=== PATIENT | female | born 1945 | race Caucasian/White ===

== ENCOUNTER → 2016-03-27 17:06 | Outpatient (CLI) | payer OTHER | END | disposition home or self-care (01) | LOC: D.MAMMO 16:00 | DX: Z12.31 Encounter for screening mammogram for malignant neoplasm of breast (principal) ==

== ENCOUNTER 2017-02-04 16:23 | Emergency (ER) | payer OTHER ==
[2017-02-04 17:42] LABS: APPEARANCE HAZY (CLEAR); BACTERIA FEW /hpf (NONE SEEN); BILIRUBIN NEGATIVE (NEGATIVE); COLOR YELLOW (YELLOW); EPITHELIAL CELLS 0-5 /hpf (0-5); GLUCOSE NEGATIVE (NEGATIVE); KETONE NEGATIVE (NEGATIVE); MUCUS <1+ /lpf (NONE SEEN); NITRITE NEGATIVE (NEGATIVE); PROTEIN NEGATIVE (NEGATIVE); RED CELLS - URINE 0-5 /hpf (0-5); SPECIFIC GRAVITY 1.005 (1.005-1.020); UROBILINOGEN NORMAL (NORMAL)
[2017-02-04 18:20] LABS: ALBUMIN 3.7 g/dL (3.4-5.0); ANION GAP 11.9 mmol/L (8-16); BILIRUBIN - TOTAL 0.35 mg/dL (0.2-1.3); CALCIUM 9.3 mg/dL (8.5-10.1); CARBON DIOXIDE 27.2 mmol/L (21.0-32.0); CREATININE - SERUM 0.9 mg/dL (0.6-1.3); POTASSIUM - SERUM 4.1 mmol/L (3.5-5.1); PROTEIN - SERUM 7.4 g/dL (6.4-8.2)
[2017-02-04 18:46] LABS: BASOPHILS 0.3 % (0-2); EOSINOPHILS 1.7 % (0-7); HEMATOCRIT 39.4 % (36.0-48.0); HEMOGLOBIN 12.9 g/dL (12-16); IMMATURE GRANULOCYTES 0.2 % (0-5); MCH 29.2 pg (26.0-34.0); MCHC 32.7 g/dL (31.0-37.0); MCV 89.1 fL (80.0-100.0); MEAN PLATELET VOLUME 11.7 fL (7.4-10.4); MONOCYTES 5.6 % (2-11); NEUTROPHILS 76.2 % (40-80); RBC 4.42 10x6/uL (4.00-5.40); RDW 13.1 % (11.5-14.5); WBC 8.7 10x3/uL (4.8-10.8)
[2017-02-04 18:50] LABS: PLATELET COUNT 233 10x3/uL (130-400)
== END 2017-02-04 20:07 | disposition home or self-care (01) ==
LOC: D.ER 16:23
PROVIDERS: Physician Assistant Medical
DX: K57.92 Diverticulitis of intestine, part unspecified, without perforation or abscess without bleeding (principal); N39.0 Urinary tract infection, site not specified

== ENCOUNTER 2017-11-12 13:22 | Emergency (ER) | payer OTHER ==
[2017-11-12 14:41] LABS: BASOPHILS 0.3 % (0-2); HEMATOCRIT 36.7 % (36.0-48.0); HEMOGLOBIN 12.2 g/dL (12-16); IMMATURE GRANULOCYTES 0.1 % (0-5); LYMPHOCYTES 11.8 % (15-50); MCHC 33.2 g/dL (31.0-37.0); MCV 87.2 fL (80.0-100.0); MEAN PLATELET VOLUME 11.3 fL (7.4-10.4); MONOCYTES 5.3 % (2-11); NEUTROPHILS 81.5 % (40-80); RBC 4.21 10x6/uL (4.00-5.40); RDW 13.7 % (11.5-14.5); WBC 6.8 10x3/uL (4.8-10.8)
[2017-11-12 14:46] LABS: PLATELET COUNT 170 10x3/uL (130-400)
[2017-11-12 14:57] LABS: ALBUMIN 3.5 g/dL (3.4-5.0); ALKALINE PHOSPHATASE 86 U/L (46-116); ALT (SGPT) 17 U/L (10-68); BILIRUBIN - TOTAL 0.67 mg/dL (0.2-1.3); CALC OSMOLALITY 277 mosm/kg (275-300); CARBON DIOXIDE 26.4 mmol/L (21.0-32.0); CHLORIDE - SERUM 106 mmol/L (98-107); CREATININE - SERUM 0.7 mg/dL (0.6-1.3); GLUCOSE 102 mg/dL (74-106); POTASSIUM - SERUM 3.9 mmol/L (3.5-5.1); PROTEIN - SERUM 6.7 g/dL (6.4-8.2); SODIUM 140 mmol/L (136-145); UREA NITROGEN 11 mg/dL (7-18); eGFR NON AFRICAN AMERICAN 87 mL/min (90-120)
[2017-11-12 15:12] LABS: CREATINE KINASE 57 UL (21-215); PRO BNP 247 pg/mL (0-125); THYROID STIMULATING HORMONE 1.12 uIU/mL (0.36-3.74); TROPONIN-I < 0.017 ng/mL (0.000-0.060)
[2017-11-12 17:32] VITALS: BP 142/70
== END 2017-11-12 17:32 | disposition home or self-care (01) ==
LOC: D.ER 13:22
PROVIDERS: Family Medicine
DX: R07.9 Chest pain, unspecified (principal); K21.9 Gastro-esophageal reflux disease without esophagitis

== ENCOUNTER 2018-06-27 09:00 | Outpatient (CLI) | payer OTHER | END 2018-06-27 10:00 | disposition home or self-care (01) | LOC: D.MAMMO 09:00 | PROVIDERS: ATTEND Family Medicine | DX: Z12.31 Encounter for screening mammogram for malignant neoplasm of breast (principal) ==

== ENCOUNTER 2019-10-11 12:54 | Inpatient (IN) | payer MEDICARE ==
[~2019-10-11] VITALS: Ht 152.4 cm; Wt 60.4 kg
--- NOTE | ~2019-10-11 | HEMODYNAMI ---
PATIENT:LINDA PRESTON MEDICAL RECORD: [id number] : 41 LOCATION:[facility] D.2122 ADMISSION DATE: 10/11/19 Generatedon:10/12/201912:52 Patient name: LINDA PRESTON Patient #: [id number] SSN: [id number] : 1945 Date of study: 10/12/2019 Page: Of Hemodynamic Procedure Report Patient Data Patient Demographics Procedure consent was obtained First Name: LINDA Gender: Female Last Name: MOHAN : 1945 Middle Initial: PRASAD Age: 74 year(s) Patient #: [id number] Race: SSN: [id number] Additional ID: [id number] Contact details Address: [address] [place] [address] ROAD State: [place] City: [place] Zip code: [address] Admission Admission Data Admission Date: 10/11/2019 Admission Time: 15:42 Arrival Date: 10/11/2019 Arrival Time: 15:42 Admit Source: Other Insurance Payor: Medicare Room #: D.2122 [facility] #: [id number] Height (in.): 59.84 BSA: 1.49 (m2) Height (cm.): 152 BMI: 23.37 (kg/m2) Weight (lbs.): 119.05 Weight (kg.): 54 Lab Results Lab Result Date: 10/12/2019 Lab Result Time: 0:00 Biochemistry Name Units Result Min Max BUN mg/dl 13 --(--*-)-- 7 18 Creatinine mg/dl 0.7 --(*---)-- 0.6 1.3 eGFR ml/min 85.87880 -*(----)-- 90 120 NONAFRICAN CBC Name Units Result Min Max Hemoglobin g/dl 13.5 --(*---)-- 13.5 17.5 Procedure Procedure Types Cath Procedure Diagnostic Procedure LHC LHC w/Coronaries Sedation Charges Moderate Sedation up to 15 minutes Procedure Description Procedure Date Procedure Date: 10/12/2019 Procedure Start Time: 12:37 Procedure End Time: 12:48 Procedure Staff Name Function Armando Payne MD Performing Physician Cherri Chaves RT Monitor Bhavya Carranza RT Scrub Hunter Hdez RN Nurse Procedure Data Cath Procedure Fluoroscopy Diagnostic fluoroscopy Total fluoroscopy Time: 1.2 time: 1.2 min min Diagnostic fluoroscopy Total fluoroscopy dose: 246 dose: 246 mGy mGy Contrast Material Contrast Material Type Amount (ml) Isovue 300 50 Entry Location Entry Primary Successful Side Size Upsize Upsize Entry Closure Succes sful Closure Location (Fr) 1 (Fr) 2 (Fr) Remarks Device Remarks Femoral Right 5 Fr Exoseal artery Estimated blood loss: 5 ml Diagnostic catheters Device Type Used For End Catheter Placement MULTIPACK JL 4.0 5Fr Left Coronary catheter Angiography MULTIPACK 3DRC 5Fr Right Coronary catheter Angiography MULTIPACK Pigtail 5 Fr LV Angiography catheter Procedure Complications No complications Procedure Medications Medication Administration Route Dosage Oxygen etCO2 Nasal cannula 2 l/min Heparin Flush Bag added to field 2 bags (1000units/500ml NS) 0.9% NaCl I.V. 100 ml/hr Lidocaine 2% added to field 20 Fentanyl I.V. 50 mcg Versed I.V. 1 mg Hemodynamics Rest BSA: 1.49 (m2) HGB: 13.5 (g/dl) O2 Consumption: Estimated: 143.38 (ml/min) O2 Co nsumption indexed: Estimated:96.23 (ml/min/m) Heart Rate: 84 (bpm) Pressure Samples Time Site Value (mmHg) Purpose Heart Use Rate(bpm) 12:44 LV 95/-1,2 Snapshot 70 Gradients Valve Time Site Site Mean SEP/DFP Peak To Heart Use 1 2 (mmHg) (sec/min) Peak Rate (mmHg) (bpm) Aortic 12:44 LV AO 70 Snapshots Pre Cath Intra NCS Post Cath Vital Signs Time Heart Resp SPO2 etCO2 NIBP (mmHg) Rhythm Pain Sedation Rate (ipm) (%) (mmHg) Status Level (bpm) 12:27:57 69 18 96 0 141/82(126) NSR 0 (11) 10(A) , No pain 12:32:19 65 16 99 12.7 110/58(80) NSR 0 (11) 10(A) , No pain 12:36:29 63 16 99 35 97/55(69) NSR 0 (11) 9(A) , No pain 12:40:35 63 16 98 35.8 90/53(68) NSR 0 (11) 9(A) , No pain 12:44:36 69 18 98 37.3 104/62(75) NSR 0 (11) 9(A) , No pain 12:52:15 61 18 98 36.6 98/54(72) NSR 0 (11) 9(A) , No pain Medications Time Medication Route Dose Verified Delivered Reason Notes Effe ctiveness by by 12:28:57 Oxygen etCO2 2 Armando Hunter Per Nasal l/min St Konrad Hdez RN physician cannula 12:29:06 Heparin Flush added 2 Armando Hunter used for Bag to bags St Konrad Hdez RN procedure (1000units/500ml field GONZALEZ NS) 12:29:20 0.9% NaCl I.V. 100 Armandobeth Montes De Ocay Per ml/hr St Konrad Hdez RN physician 12:29:29 Lidocaine 2% added 20ml Armando Harrison used for to vial St Konrad Hdez RN procedure field 12:30:23 Fentanyl I.V. 50 Armando Hunter for mcg St Konrad Hdez RN sedation 12:30:59 Versed I.V. 1 [address] for [address] Konrad Hdez RN sedation Procedure Log Time Note 12:08:24 Informed consent obtained and on chart 12:10:06 Arrival Date: 10/11/2019 3:42:00 PM 12:10:23 Admit Source: Other 12:10:30 Insurance Payor : Medicare 12:10:40 Patient Height : 59.84 inches 12:10:43 Patient Weight : 119.05 lbs 12:11:34 Lab Result : Hemoglobin 13.5 g/dl 12:11:34 Lab Result : eGFR NONAFRICAN 85.24651 ml/min 12:11:34 Lab Result : BUN 13 mg/dl 12:11:34 Lab Result : Creatinine 0.7 mg/dl 12:11:43 Diagnostic Cath Status : Urgent 12:12:04 Procedure Status Urgent Heart Cath (IP). 12:12:07 Bhavya KNAPP(R) (CV) sent for patient. Start room use. 12:12:08 Time tracking: Regular hours (M-F 7:00 - 5:00) 12:12:14 Plan of Care:Hemodynamics will remain stable., Cardiac rhythm will remain stable., Comfort level will be maintained., Respiratory function will remain adequate., Patient/ family verbilizes understanding of procedure., Procedure tolerated without complication., Recovers from procedure without complications.. 12:26:47 Vital chart was started 12:27:39 Patient received from Med II to CCL 2 Alert and oriented. Tansferred to table in Supine position. 12:27:40 Warm blankets applied, and gregory hugger turned on for patient comfort. 12:27:40 Correct patient and procedure confirmed by team. 12:27:41 ECG and BP/O2 sat monitors applied to patient. 12:27:42 Baseline sample Acquired. 12:27:50 Rhythm: sinus tachycardia 12:27:52 Full Disclosure recording started 12:27:59 H&P Date Dictated: 10/12/2019 New H&P dictated by physician.. 12:28:00 Pre-procedure instructions explained to patient. 12:28:00 Pre-op teaching completed and patient verbalized understanding. 12:28:07 Family in patients room. 12:28:09 Patient NPO since Midnight. 12:28:11 Is the patient allergic to Iodine/contrast media? No. 12:28:11 Was the patient premedicated? Yes 12:28:12 Is patient on blood thinner?No 12:28:14 Patient diabetic? No. 12:28:16 Previous problem with sedation/anesthesia? No ? 12:28:18 Snore? No 12:28:19 Sleep apnea? No 12:28:20 Deviated septum? No 12:28:20 Opens mouth fully? Yes 12:28:22 Sticks out tongue? Yes 12:28:25 Airway obstruction? No ? 12:28:32 Dentures? Yes upper; in tight 12:28:36 Pre procedure: right dorsailis pedis pulse 1+ Palpable, but thready & weak; easily obliterated 12:28:43 Pre procedure: left dorsailis pedis pulse 1+ Palpable, but thready & weak; easily obliterated 12:28:45 Patient pain scale 0/10 ?. 12:28:51 IV patent on arrival in right wrist with 0.9% NaCl at O. 12:28:53 Lab results completed and on chart. 12:28:57 Oxygen 2 l/min etCO2 Nasal cannula was administered by Hunter Hdez RN; Per physician; Verbal order read back and verified. :: Right groin area was prepped with chlora-prep and draped in sterile fashion 12:: Alarms reviewed by R. N. :: Sharps counted by scrub and verified by R.N. :: Physician arrived :: --------ALL STOP TIME OUT------ :: Final Timeout: patient, procedure, and site verified with staff and physician. All members of the team are in agreement. 12:: Right groin site verified by team. 12:: Heparin Flush Bag (1000units/500ml NS) 2 bags added to field was administered by Hunter Hdez RN; used for procedure; Verbal order read back and verified. 12:: Fire Safety Assessment: A--An alcohol-based skin anteseptic being used preoperatively., C--Open oxygen or nitrous oxide is being used., D--An ESU, laser, or fiber-optic light is being used. 12:29:12 Physical assessment completed. ASA score P 2 - A patient with mild systemic disease as per Armando Payne MD. 12:29:20 0.9% NaCl 100 ml/hr I.V. was administered by Hunter Hdez RN; Per physician; Verbal order read back and verified. 12:29:25 2) 60-89 Mildly reduced kidney function, and other findings (as for stage 1) point to kidney disease. 12::29 Lidocaine 2% 20ml vial added to field was administered by Hunter Hdez RN; used for procedure; Verbal order read back and verified. 12:30:23 Fentanyl 50 mcg I.V. was administered by Hunter Hdez RN; for sedation; Verbal order read back and verified. 12::59 Versed 1 mg I.V. was administered by Hunter Hdez RN; for sedation; Verbal order read back and verified. 12:31:32 Use device set Femoral Dx 12:31:33 ACIST Syringe (15795) opened to sterile field. 12:31:33 Bag Decanter (2002S) opened to sterile field. 12:31:33 Medline Cath Pack ([id number]) opened to sterile field. 12:31:34 ACIST Hand Control (82788) opened to sterile field. 12:31:35 ACIST Manifold (32760) opened to sterile field. 12:31:35 DIAGNOSTIC Multipack 5Fr catheter set (WT1884) opened to sterile field. 12:31:36 Tegaderm 4 x 4 (1626W) opened to sterile field. 12:31:38 SHEATH 5FR Superior (FLB280) opened to sterile field. 12:31:38 EMERALD Guide Wire (580-831) opened to sterile field. 12:37:12 Procedure started. 12:37:16 Local anesthetic to right femoral artery with Lidocaine 2% by Armando Payne MD.INITIAL ACCESS ONLY 12:37:23 A 5 Fr sheath was inserted into the Right Femoral artery 12:39:31 A MULTIPACK JL 4.0 5Fr catheter was advanced over the wire and used for Left Coronary Angiography. 12:39:56 LCA angiography performed. 12:39:59 Injector settings: Ml/sec: 3, Volume: 6, 12:41:29 Catheter removed. 12:42:15 A MULTIPACK 3DRC 5Fr catheter was advanced over the wire and used for Right Coronary Angiography. 12:42:26 Catheter removed. 12:42:35 A MULTIPACK Pigtail 5 Fr catheter was advanced over the wire and used for LV Angiography. 12:44:12 LV hemodynamics recorded. 12:44:47 EF : 45 % 12:44:52 Catheter removed. 12:44:55 EXOSEAL 5Fr (EX500) opened to sterile field. 12:45:11 Sheath removed intact; hemostasis achieved with Exoseal to the Right Femoral artery. 12:45:13 Procedure ended.(Physican Out) 12:46:04 Fluoroscopy time 01.20 minutes. 12:46:47 Fluoroscopy dose: 246 mGy 12:46:47 Flurop Dose total: 246 12:46:54 Dose Area Product 53909 mGy/cm. 12:46:57 Contrast amount:Isovue 300 50ml. 12:46:59 Maximum allowable dose exceeded? No. 12:47:01 Sharps counted by scrub and verified by R.N. 12:47:02 Insertion/operative site no bleeding no hematoma. 12:47:04 Post-op/insertion site Right Femoral artery dressed using a 4 x 4 and Tegaderm. 12:47:06 Post Procedure Pulses reassessed and unchanged 12:47:08 Post procedure rhythm: unchanged. 12:47:11 Estimated blood loss: 5 ml 12:47:12 Post procedure instruction explained to patient.Patient verbalizes understanding. 12:47:12 Patient needs reinforcement of post procedure teaching. 12:47:40 Procedure type changed to Cath procedure, Diagnostic procedure, LHC, [facility] w/Coronaries, Sedation Charges, Moderate Sedation up to 15 minutes 12:47:41 Procedure and supply charges have been captured, reviewed, submitted and are correct. 12:47:49 Procedure Complication : No complications 12:47:51 Vital chart was stopped 12:47:55 [facility] Findings: MVD- CABG consult 12:47:57 Operative report dictated upon procedure completion. 12:47:57 See physician's report for complete and final results. 12:47:59 Report given to Med II. 12:48:02 Patient transfered to Med II with Stretcher. 12:48:04 Procedure ended. 12:48:04 Full Disclosure recording stopped 12:48:10 End room use (Document Last) Device Usage Item Name Manufacture Quantity Catalog Hospital Part Current Minimal L ot# / Number Charge Number Stock Stock Serial# Code ACIST Acist 1 03222 668620 054955 011697 20 Syringe Medical (30428) Systems Inc Bag Microtek 1 226999 84811 396968 5 Decanter Medical Inc. () Medline Medline 1 [id number] 613261 98115 239575 5 Cath Pack ([id number]) ACIST Hand Acist 1 62815 818929 015094 572737 5 Control Medical (37746) Systems Inc ACIST Acist 1 34102 565105 194772 880157 5 Manifold Medical (77755) Systems Inc DIAGNOSTIC Cardinal 1 [id number] 100988 04879 955622 30 Multipack Adteractive 5Fr catheter set (OO1297) Tegaderm 4 3M 1 1626W 440276 369360 717147 5 x 4 (1626W) SHEATH 5FR Terumo 1 NCW491 081281 784794 827933 5 Superior (VQI250) EMERALD Cardinal 1 502-455 031055 863938 332867 5 Guide Wire Adteractive (502-455) MULTIPACK Cardinal 1 859351 5 JL 4.0 5Fr Health catheter MULTIPACK Cardinal 1 810431 5 3DRC 5Fr Health catheter MULTIPACK Cardinal 1 359551 5 Pigtail 5 Health Fr catheter EXOSEAL 5Fr Cardinal 1 EX500 388998 496261 812327 10 (EX500) Health Signature Audit [place] Stage Time Signature Unsigned Intra-Procedure 10/12/2019 Cherri Chaves 12:49:45 PM RT(R) Intra-Procedure 10/12/2019 Hunter Hdez 12:50:22 PM RN Intra-Procedure 10/12/2019 Armando Acevedo 12:52:41 PM Konrad GONZALEZ Signatures Performing Physician : Signature : Armando Payne MD Date : Time : Monitor : Cherri Chaves RT Signature : Date : Time : Nurse : Hunter Hdez RN Signature : Date : Time : [place] [address] [place] [address]
[2019-10-11 13:30] LABS: BASOPHILS 0.3 % (0-2); EOSINOPHILS 0.4 % (0-7); HEMATOCRIT 40.5 % (36.0-48.0); HEMOGLOBIN 13.5 g/dL (12-16); IMMATURE GRANULOCYTES 0.1 % (0-5); LYMPHOCYTES 21.4 % (15-50); MCH 29.2 pg (26.0-34.0); MCHC 33.3 g/dL (31.0-37.0); MCV 87.7 fL (80.0-100.0); MEAN PLATELET VOLUME 11.3 fL (7.4-10.4); MONOCYTES 6.8 % (2-11); PLATELET COUNT 191 10x3/uL (130-400); RBC 4.62 10x6/uL (4.00-5.40); RDW 13.2 % (11.5-14.5); WBC 6.8 10x3/uL (4.8-10.8)
[2019-10-11 13:33] LABS: CALC OSMOLALITY 276 mosm/kg (275-300); CALCIUM 9.4 mg/dL (8.5-10.1); CARBON DIOXIDE 25.6 mmol/L (21.0-32.0); CHLORIDE - SERUM 106 mmol/L (98-107); CREATININE - SERUM 0.7 mg/dL (0.6-1.3); GLUCOSE 103 mg/dL (74-106); SODIUM 139 mmol/L (136-145); UREA NITROGEN 9 mg/dL (7-18); eGFR NON AFRICAN AMERICAN 86 mL/min (90-120)
[2019-10-11 13:35] LABS: APTT 29.3 SECONDS (22.8-39.4); INR 0.97 (0.85-1.17); PROTIME 12.8 SECONDS (11.6-15.0)
[2019-10-11 13:39] VITALS: BP 142/82
[2019-10-11 13:55] LABS: ALBUMIN 3.8 g/dL (3.4-5.0); ALKALINE PHOSPHATASE 108 U/L (30-120); ALT (SGPT) 22 U/L (10-68); CKMB 29.4 U/L (0.0-3.6); CREATINE KINASE 263 UL (21-215); MAGNESIUM - SERUM 2.1 mg/dL (1.8-2.4); PROTEIN - SERUM 7.5 g/dL (6.4-8.2)
[2019-10-11 13:57] LABS: TROPONIN-I 3.921 ng/mL (0.000-0.060)
--- NOTE | 2019-10-11 17:51 | NUR ---
PT ARRIVED TO FLOOR. AT BEDSIDE. TELEMETRY APPLIED. INFORMED OF NPO STATUS FOR NOW.
[2019-10-11 17:55] VITALS: BP 132/79
[2019-10-11 20:00] VITALS: BP 113/59
[2019-10-11 20:19] LABS: CKMB 23.1 U/L (0.0-3.6); CREATINE KINASE 212 UL (21-215)
[2019-10-11 20:20] LABS: TROPONIN-I 4.513 ng/mL (0.000-0.060)
[2019-10-12] VITALS (7 sets, daily range): BP systolic 107–132; BP diastolic 59–78; Ht 152.4 cm; Wt 60.4 kg
[2019-10-12 01:17] LABS: CKMB 13.7 U/L (0.0-3.6); CREATINE KINASE 164 UL (21-215); TROPONIN-I 4.077 ng/mL (0.000-0.060)
--- NOTE | 2019-10-12 12:16 | NUR ---
PT TO CREDIT PORTFOLIO ADVISOR.
[2019-10-12 14:43] LABS: HEMATOCRIT 37.9 % (36.0-48.0); HEMOGLOBIN 12.3 g/dL (12-16); MCH 28.8 pg (26.0-34.0); MCHC 32.5 g/dL (31.0-37.0); MCV 88.8 fL (80.0-100.0); MEAN PLATELET VOLUME 11.5 fL (7.4-10.4); RBC 4.27 10x6/uL (4.00-5.40); RDW 13.4 % (11.5-14.5); WBC 6.1 10x3/uL (4.8-10.8)
[2019-10-12 15:38] LABS: INR 1.08 (0.85-1.17); PROTIME 13.9 SECONDS (11.6-15.0)
[2019-10-12 15:46] LABS: APTT 37.2 SECONDS (22.8-39.4)
[2019-10-12 16:56] LABS: PLT FUNCT.(P2Y12) PLAVIX 102 PRU (194-418)
--- NOTE | 2019-10-12 19:30 | NUR ---
RECEIVED BEDSIDE REPORT. ROUNDING COMPLETE. PATIENT IS ALERT AND ORIENTED, RESTING COMFORTABLY IN BED. RESPIRATIONS ARE EVEN AND UNLABORED. NO S/S OF DISTRESS. NO C/O PAIN. CALLLIGHT WITHIN REACH. WILL CPOC.
[2019-10-13] VITALS: BP 122/76
[2019-10-13 04:00] VITALS: BP 105/62
[2019-10-13 05:21] LABS: BASOPHILS 0.2 % (0-2); EOSINOPHILS 0.8 % (0-7); HEMATOCRIT 37.2 % (36.0-48.0); HEMOGLOBIN 12.1 g/dL (12-16); LYMPHOCYTES 23.8 % (15-50); MCH 28.7 pg (26.0-34.0); MCHC 32.5 g/dL (31.0-37.0); MCV 88.4 fL (80.0-100.0); MONOCYTES 5.7 % (2-11); NEUTROPHILS 69.5 % (40-80); PLATELET COUNT 171 10x3/uL (130-400); RBC 4.21 10x6/uL (4.00-5.40); RDW 13.5 % (11.5-14.5); WBC 6.1 10x3/uL (4.8-10.8)
[2019-10-13 06:02] LABS: ALBUMIN 3.2 g/dL (3.4-5.0); ALKALINE PHOSPHATASE 90 U/L (30-120); ALT (SGPT) 17 U/L (10-68); BILIRUBIN - TOTAL 0.76 mg/dL (0.2-1.3); CALCIUM 8.9 mg/dL (8.5-10.1); CARBON DIOXIDE 25.6 mmol/L (21.0-32.0); CHLORIDE - SERUM 103 mmol/L (98-107); CREATININE - SERUM 0.7 mg/dL (0.6-1.3); GLUCOSE 116 mg/dL (74-106); POTASSIUM - SERUM 3.8 mmol/L (3.5-5.1); PRO BNP 2837 pg/mL (0-450); PROTEIN - SERUM 6.5 g/dL (6.4-8.2); SODIUM 138 mmol/L (136-145); eGFR NON AFRICAN AMERICAN 86 mL/min (90-120)
[2019-10-13 06:08] LABS: CALC OSMOLALITY 276 mosm/kg (275-300); UREA NITROGEN 12 mg/dL (7-18)
[2019-10-13 08:00] VITALS: BP 127/69
[2019-10-13 12:03] VITALS: BP 105/57
--- NOTE | 2019-10-13 13:47 | NUR ---
HEPARIN INCREASED TO 800ML/HR VIA R.WRIST PER PROTOCOL. NEW PTT ORDERED FOR 1944. WILL CTM.
[2019-10-13 20:00] VITALS: BP 121/72
[2019-10-14 04:00] VITALS: BP 110/70
[2019-10-14 06:59] LABS: BASOPHILS 0.4 % (0-2); EOSINOPHILS 1.3 % (0-7); HEMATOCRIT 38.2 % (36.0-48.0); HEMOGLOBIN 12.6 g/dL (12-16); IMMATURE GRANULOCYTES 0.2 % (0-5); LYMPHOCYTES 24.3 % (15-50); MCH 29.1 pg (26.0-34.0); MCV 88.2 fL (80.0-100.0); MEAN PLATELET VOLUME 11.6 fL (7.4-10.4); MONOCYTES 8.4 % (2-11); NEUTROPHILS 65.4 % (40-80); PLATELET COUNT 176 10x3/uL (130-400); RBC 4.33 10x6/uL (4.00-5.40); RDW 13.4 % (11.5-14.5); WBC 5.5 10x3/uL (4.8-10.8)
[2019-10-14 07:52] LABS: ALBUMIN 3.4 g/dL (3.4-5.0); ANION GAP 13.9 mmol/L (8-16); BILIRUBIN - TOTAL 0.55 mg/dL (0.2-1.3); CALCIUM 8.8 mg/dL (8.5-10.1); CARBON DIOXIDE 25.1 mmol/L (21.0-32.0); CREATININE - SERUM 0.8 mg/dL (0.6-1.3); PROTEIN - SERUM 6.4 g/dL (6.4-8.2)
--- NOTE | 2019-10-14 07:58 | CN ---
PATIENT NAME:LINDA PRESTON MEDICAL RECORD: [id number] : 41 LOCATION:D. D.2122 ADMIT DATE: 10/11/19 ACCOUNT: [id number] CONSULTING PHYSICIAN: ANJUM DORADO MD REFERRING PHYSICIAN: AL PRADO DO DATE OF CONSULTATION: 10/12/2019 HISTORY OF PRESENT ILLNESS: A 74-year-old female with no known history of coronary artery disease, on no chronic medications, quite healthy, still working part-time. About the past week, she has been having intermittent chest tightness and pressure in the chest, waxing and waning course, had a severe episode yesterday, presented to the Emergency Room, had enzymes consistent with NSTEMI. We are asked to see her concerning her cardiovascular status. PAST MEDICAL HISTORY: Unremarkable. ALLERGIES: None known. MEDICATIONS: None chronically. SOCIAL HISTORY: . Nonsmoker and nondrinker, walks at least 5 days a week. Easily takes care of all her ADLs. REVIEW OF SYSTEMS: The patient reports easy bruising but reports no swollen glands. The patient reports no fever, no night sweats, no significant weight gain, no significant weight loss. No significant exercise tolerance. The patient reports no dry eyes, no irritation, no vision change. Patient reports no difficulty hearing and no ear pain. Patient reports no frequent nose bleeds or nose and sinus problems. Patient reports on arm pain on exertion. No shortness of breath while lying down. No history of heart murmur. Patient reports no cough, no wheezing or coughing up blood. Patient reports no abdominal pain, no vomiting. Normal appetite. No diarrhea and not vomiting blood. No nausea and no constipation. Patient reports no incontinence. No difficulty urinating. No hematuria. No increased frequency. Patient reports no muscle aches. No weakness, no arthralgias, no back pain. No swelling of the extremities. Patient reports no abnormal mole, no jaundice, no rashes. Reports no loss of consciousness. No weakness and no numbness. No seizures, dizziness, or headaches. The patient reports no depression, no sleep disturbance, feeling safe in a relationship and no alcohol abuse. Patient reports on fatigue. Reports no runny nose or sinus pressure. No itching, no hives, and no frequent sneezing. PHYSICAL EXAMINATION: GENERAL: Pleasant female, in no acute distress, appears younger than stated age. VITAL SIGNS: Blood pressure 127/78, pulse 72 and regular. HEENT: Normocephalic and atraumatic. NECK: No JVD or bruit. HEART: Regular, II/ systolic ejection murmur. LUNGS: Good air excursion. ABDOMEN: Soft, nontender. EXTREMITIES: Pulses 2+. No edema. DIAGNOSTIC DATA: EKG shows poor R-wave progression. CONSULT REPORT [id number] LINDA PRESTON IMPRESSION: Non-ST segment elevation myocardial infarction at this point in time. PLAN: For angiography, intervention based on above. TRANSINT:[id number] Voice Confirmation ID: [id number] DOCUMENT ID: [id number] ANJUM DORADO MD at 0758 CC: [id number] DICTATION DATE: 10/12/19 1023 CORK INSULATION SETTER: 10/12/19 1251 ADM IN [facility] [address] [place] [address]
--- NOTE | 2019-10-14 07:58 | OP ---
PATIENT NAME: LINDA PRESTON MEDICAL RECORD: [id number] :41 LOCATION:D.M2 D.2122 ADMISSION DATE:10/11/19 SURGEON: ANJUM DORADO MD DATE OF OPERATION: 10/12/2019 PROCEDURE: Left heart catheterization, selective coronary angiography, right femoral artery approach. CATHETERS: A 5-Honduran sheath, 5/4 Ubaldo, 5/4 pig. The procedure was well tolerated. The patient returned to castro, sheath removed. ExoSeal device placed. FINDINGS: Left ventriculography in the 30-degree FELIPE view shows mild anterior apical hypokinesis but overall function only mildly reduced at 45% to 50%. CORONARY ANATOMY: LEFT MAIN: Left main is free of disease. LAD: LAD is basically subtotaled in its mid portion. The distal LAD has JASMEET 3 flow. This is small, but appears to be a reasonable target. CIRCUMFLEX: Circumflex has a large OM with 80% proximal stenosis. Terminal true circumflex has about 80% stenosis. RIGHT CORONARY ARTERY: Right coronary artery again has about 80% stenosis, appears to be a good target distally. IMPRESSION: Mildly decreased LV systolic function, multivessel coronary artery disease. We will ask Dr. Jacob concerning possible coronary bypass grafting. TRANSINT:[id number] Voice Confirmation ID: [id number] DOCUMENT ID: [id number] ANJUM DORADO MD at 0758 CC: [id number] DICTATION DATE: 10/12/19 1258 MAKEUP SALES CONSULTANT: 10/13/19 0024 ADM IN [place] [address] [place] [address]
[2019-10-14 10:36] VITALS: BP 109/56
[2019-10-14 12:00] VITALS: BP 118/68
--- NOTE | 2019-10-14 13:40 | NUR ---
Nutrition Follow-up: Pt reports good appetite/PO intake. Denies N/V/C/D. Noted plans for CABG on Saturday. Diet: Cardiac PO intake: 75-100% Wt: 120# (10/11) Last BM: 10/13 Labs noted: Glu 109 Meds noted: Protonix, electrolyte protocol -Monitor wt; noted daily wts ordered. -RD following.
[2019-10-14 16:00] VITALS: BP 121/64
[2019-10-14 19:54] LABS: BILIRUBIN NEGATIVE (NEGATIVE); KETONE NEGATIVE (NEGATIVE); NITRITE NEGATIVE (NEGATIVE); UROBILINOGEN NORMAL (NORMAL)
[2019-10-14 19:55] LABS: EPITHELIAL CELLS OCC /hpf (0-5); RED CELLS - URINE OCC /hpf (0-5); WHITE CELLS - URINE 0-5 /hpf (0-5)
[2019-10-14 20:00] VITALS: BP 110/59
[2019-10-15] VITALS: BP 115/66
[2019-10-15 04:00] VITALS: BP 102/63
[2019-10-15 06:20] LABS: BASOPHILS 0.6 % (0-2); EOSINOPHILS 2.1 % (0-7); HEMATOCRIT 35.4 % (36.0-48.0); HEMOGLOBIN 11.7 g/dL (12-16); IMMATURE GRANULOCYTES 0.2 % (0-5); LYMPHOCYTES 30.6 % (15-50); MCH 29.3 pg (26.0-34.0); MCHC 33.1 g/dL (31.0-37.0); MCV 88.5 fL (80.0-100.0); MEAN PLATELET VOLUME 11.3 fL (7.4-10.4); MONOCYTES 8.3 % (2-11); NEUTROPHILS 58.2 % (40-80); PLATELET COUNT 156 10x3/uL (130-400); RDW 13.2 % (11.5-14.5); WBC 4.8 10x3/uL (4.8-10.8)
[2019-10-15 06:32] LABS: INR 1.04 (0.85-1.17); PROTIME 13.6 SECONDS (11.6-15.0)
[2019-10-15 06:33] LABS: APTT 85.3 SECONDS (22.8-39.4)
[2019-10-15 07:02] LABS: ALBUMIN 3.1 g/dL (3.4-5.0); ALKALINE PHOSPHATASE 84 U/L (30-120); ALT (SGPT) 21 U/L (10-68); BILIRUBIN - TOTAL 0.59 mg/dL (0.2-1.3); CALC OSMOLALITY 278 mosm/kg (275-300); CARBON DIOXIDE 26.4 mmol/L (21.0-32.0); CHLORIDE - SERUM 103 mmol/L (98-107); CHOLESTEROL, TOTAL 183 mg/dL (0-200); CREATININE - SERUM 0.7 mg/dL (0.6-1.3); GLUCOSE 103 mg/dL (74-106); PHOSPHOROUS 2.9 mg/dL (2.5-4.9); POTASSIUM - SERUM 4.1 mmol/L (3.5-5.1); PRO BNP 1886 pg/mL (0-450); PROTEIN - SERUM 6.5 g/dL (6.4-8.2); SODIUM 139 mmol/L (136-145); UREA NITROGEN 14 mg/dL (7-18); URIC ACID 3.6 mg/dL (2.6-7.2); eGFR NON AFRICAN AMERICAN 86 mL/min (90-120)
[2019-10-15 09:32] VITALS: BP 116/63
--- NOTE | 2019-10-15 10:50 | NUR ---
PT TOOK SHOWER BY SELF.
[2019-10-15 13:55] VITALS: BP 118/61
--- NOTE | 2019-10-15 14:05 | MORECARE ---
CASE MANAGEMENT DISCHARGE SUMMARY PATIENT: LINDA PRESTON UNIT: [id number] ADM DATE: 10/11/19 AGE: 74 : 43 SEX: F ROOM/BED: D.2122 AUTHOR: JENNIFFER MOORE PHYSICIAN: REFERRING PHYSICIAN: AL PRADO DO DATE OF SERVICE: 10/15/19 Discharge Plan Patient Name: LINDA PRESTON [facility] [facility] 1945 Planned Disposition: Home or Self Care Anticipated Discharge Date: Discharge Date: Expected LOS: Initial Reviewer: [email or web address] Initial Review Date: 10/15/2019 Generated: 10/15/19 3:05 pm Patient Name: LINDA PRESTON Page [id number] at 1405 All edits/amendments must be made on the electronic document DICTATION DATE: 10/15/19 1405 CHIP LOFT WORKER: LAVERN 10/15/19 1405 RPT#: [id number] DC DATE: STATUS: ADM IN [facility] [address] [place] [address] END OF REPORT
--- NOTE | 2019-10-15 14:13 | MORECARE ---
CASE MANAGEMENT DISCHARGE SUMMARY PATIENT: LINDA GARCIA UNIT: [id number] ADM DATE: 10/11/19 AGE: 74 : 43 SEX: F ROOM/BED: D.2 AUTHOR: JENNIFFER MOORE PHYSICIAN: REFERRING PHYSICIAN: AL PRADO DO DATE OF SERVICE: 10/15/19 Discharge Plan Patient Name: LINDA GARCIA [facility] [facility] 1945 Planned Disposition: Home or Self Care Anticipated Discharge Date: Discharge Date: Expected LOS: Initial Reviewer: [email or web address] Initial Review Date: 10/15/2019 Generated: 10/15/19 3:12 pm DCPIA - Discharge Planning Initial Assessment Updated by [email or web address]: Deacon Gabriel on 10/15/19 2:09 pm * Is the patient Alert and Oriented? Yes * How many steps to enter\exit or inside your home? * PCP Lyndon Lawton * Pharmacy [facility] in [place] * Preadmission Environment Home with Family * ADLs Independent * Equipment Cane Crutch Elevated Toliet Seat Walker * List name and contact numbers for known caregivers / representatives who currently or will assist patient after discharge: Robin Garcia ([phone]) * Verbal permission to speak to the caregivers and representatives has been obtained from the patient. Yes * Community resources currently utilized None * Additional services required to return to the preadmission environment? No * Can the patient safely return to the preadmission environment? Yes * Has this patient been hospitalized within the prior 30 days at any hospital? No Last DP export: 10/15/19 1:05 pm Patient Name: LINDA GARCIA Page [phone] at 1413 All edits/amendments must be made on the electronic document DICTATION DATE: 10/15/19 141 DOPE EDGER: LAVERN 10/15/19 141 RPT#: [id number] DC DATE: STATUS: ADM IN [facility] [address] [place] [address] END OF REPORT
--- NOTE | 2019-10-15 14:35 | MORECARE ---
CASE MANAGEMENT DISCHARGE SUMMARY PATIENT: LINDA GARCIA UNIT: [id number] ADM DATE: 10/11/19 AGE: 74 : 41 SEX: F ROOM/BED: D.6742 AUTHOR: JENNIFFER MOORE PHYSICIAN: REFERRING PHYSICIAN: AL PRADO DO DATE OF SERVICE: 10/15/19 Discharge Plan Patient Name: LINDA GARCIA Facility: [facility]:[place] : 1945 Planned Disposition: Home or Self Care Anticipated Discharge Date: Discharge Date: Expected LOS: Initial Reviewer: [email or web address] Initial Review Date: 10/15/2019 Generated: 10/15/19 3:35 pm Comments DCP- Discharge Planning Updated by [email or web address]: Deacon Gabriel on 10/15/19 1:[address] Patient Name: LINDA GARCIA Admission Status: ER Accout number: [id number] Admission Date: 10-11-2019 : 1945 Admission Diagnosis:NON-ST ELEVATION (NSTEMI) MYOCARDIAL INFARCTION Attending: AL PRADO Current LOS: 4 Anticipated DC Date: Planned Disposition: Home or Self Care Primary Insurance: AETNA MEDICARE PPO or HMO Discharge Planning Comments: CM met with patient to complete initial dc planning assessment. CM educated patient on the CM role and verbal consent was given by patient to complete assessment. CM verified patient's address, phone number, and emergency contact phone numbers. Patient lives at home with her spouse. At discharge, patient plans to return home and feels this is a safe discharge environment. Patient explained that she has 3 steps total to enter her house and they are at different levels, however, ramps have been installed and she feels that her home is safe to enter. She further stated that she exits her house via the front door and the one step inside her home has handrails that eases navigation from one level to the other. Patient stated that she has daughters that live nearby on the same property and several grandchildren that will come to help with house chores. CM discussed availability of home health, rehab services, and medical equipment. Patient explained that her spouse has left over medical equipment from a previous surgery and she does not anticipate needing any equipment. Patient denied known discharge needs at this time. Transportation provider at discharge will be her spouse, Robni Garcia ([phone]). Patient explained that if outpatient rehabilitation services are needed post discharge, then she would like facilities near [place] to provide her care. CM will continue to follow and will assist as needed with dc plans/needs. Needle Loom Weaver: Deacon Gabriel DCPIA - Discharge Planning Initial Assessment Updated by [email or web address]: Deacon Gabriel on 10/15/19 2:09 pm * Is the patient Alert and Oriented? Yes * How many steps to enter\exit or inside your home? * PCP Lyndon Lawton * Pharmacy [email or web address] in [place] * Preadmission Environment Home with Family * ADLs Independent * Equipment Cane Crutch Elevated [place] Seat Walker * List name and contact numbers for known caregivers / representatives who currently or will assist patient after discharge: Robin Garcia ([phone]) * Verbal permission to speak to the caregivers and representatives has been obtained from the patient. Yes * Community resources currently utilized None * Additional services required to return to the preadmission environment? No * Can the patient safely return to the preadmission environment? Yes * Has this patient been hospitalized within the prior 30 days at any hospital? No Last DP export: 10/15/19 1:13 pm Patient Name: LINDA GARCIA Page 11700 at 1435 All edits/amendments must be made on the electronic document DICTATION DATE: 10/15/19 1435 MONOTYPE SETTER: LAVERN 10/15/19 1435 RPT#: [id number] DC DATE: STATUS: ADM IN [facility] [address] [place] [address] END OF REPORT
--- NOTE | 2019-10-15 18:03 | NUR ---
I have reviewed this patient and I concur with the Shift Assessment completed by the Licensed Practical Nurse today this shift.
[2019-10-15 18:10] VITALS: BP 115/52
[2019-10-16] VITALS (50 sets, daily range): BP systolic 89–145; BP diastolic 50–97
--- NOTE | 2019-10-16 04:00 | NUR ---
HEPARIN DRIP STOPPED. PER NURSING INSTRUCTION.
[2019-10-16 06:33] LABS: BASOPHILS 0.4 % (0-2); EOSINOPHILS 2.4 % (0-7); HEMATOCRIT 36.9 % (36.0-48.0); IMMATURE GRANULOCYTES 0.2 % (0-5); LYMPHOCYTES 27.7 % (15-50); MCHC 32.5 g/dL (31.0-37.0); MCV 89.1 fL (80.0-100.0); MONOCYTES 7.4 % (2-11); NEUTROPHILS 61.9 % (40-80); PLATELET COUNT 166 10x3/uL (130-400); RBC 4.14 10x6/uL (4.00-5.40); RDW 13.4 % (11.5-14.5); WBC 4.6 10x3/uL (4.8-10.8)
[2019-10-16 06:37] LABS: ALBUMIN 3.4 g/dL (3.4-5.0); ANION GAP 13.2 mmol/L (8-16); BILIRUBIN - TOTAL 0.55 mg/dL (0.2-1.3); CALCIUM 9.4 mg/dL (8.5-10.1); CARBON DIOXIDE 25.7 mmol/L (21.0-32.0); CREATININE - SERUM 0.8 mg/dL (0.6-1.3); POTASSIUM - SERUM 3.9 mmol/L (3.5-5.1); PROTEIN - SERUM 6.8 g/dL (6.4-8.2)
[2019-10-16 11:59] LABS: INR 1.6 (0.85-1.17); PROTIME 18.9 SECONDS (11.6-15.0)
--- NOTE | 2019-10-16 12:41 | NUR ---
Nutrition Follow-up: CABG today. Diet: Clear Liquid -> Regular No new wt; last wt: 120# (10/11) Labs reviewed Meds reviewed -Rec ADAT as medically feasible following surgery. -Need new wt; noted daily wts ordered. -RD following.
--- NOTE | 2019-10-16 15:02 | NUR ---
UNABLE TO GIVE PLASMA AWAITING ON BLOOD BAND FROM LAB AT THIS TIME.
[2019-10-16 19:00] LABS: INR 1.12 (0.85-1.17); PROTIME 14.4 SECONDS (11.6-15.0)
--- NOTE | 2019-10-16 19:15 | NUR ---
REPORT REC'D AND CARE ASSUMED, REC'D PT RESTING EYES CLOSED, RESP EVEN AND UNLABORED ON 3.5 LITERS OF O2, PT AWAKENS EASILY, HARD OF HEARING, FOLLOWS COMMANDS, RIJ CVL DRSG CDI WITH PLASMALYTE @ 100CC/HR, NEOSYNEPHRINE @ 0.8CC/HR, ZINACEF @ 12.8CC/HR, MIDSTERNAL DRSG CDI, MEDIASTINAL CT'S Y'ED TOGETHER TO 20CM H2O SUCTION, SANGUINOUS DRAINAGE NOTED, LEFT RADIAL CHAD WITH FLEXION BOARD IN USE, LEVELED AND ZEROED WITH RETURN OF APPROPRIATE WAVEFORMS, ELLIOTT PATENT DRAINING CLEAR YELLOW URINE, TEDS/SCDS BILATERAL COBAN DRSGS CDI, LEFT SUBSTERNAL PATRICIA DRAIN COMPRESSED WITH SANGUINOUS DRAINAGE, PPP, SR UP X 2, CALL LIGHT IN REACH.
--- NOTE | 2019-10-16 20:00 | NUR ---
PT TOLERATING ICE CHIPS, DENIES NAUSEA
--- NOTE | 2019-10-16 20:45 | NUR ---
PT'S CALLED AND UPDATE PROVIDED.
[2019-10-17] VITALS (30 sets, daily range): BP systolic 90–120; BP diastolic 48–69
--- NOTE | 2019-10-17 00:51 | NUR ---
PT AWAKE, COMPLAINS OF PAIN IN HER BACK, PERCOCET 10 GIVEN PO FOR DISCOMFORT, VSS.
[2019-10-17 06:06] LABS: MCH 28.5 pg (26.0-34.0); MCV 89.1 fL (80.0-100.0); MEAN PLATELET VOLUME 10.5 fL (7.4-10.4); RDW 14.4 % (11.5-14.5)
[2019-10-17 06:08] LABS: HEMATOCRIT 26.9 % (36.0-48.0); HEMOGLOBIN 8.6 g/dL (12-16); RBC 3.02 10x6/uL (4.00-5.40); WBC 10.2 10x3/uL (4.8-10.8)
[2019-10-17 06:34] LABS: ALBUMIN 2.7 g/dL (3.4-5.0); ALKALINE PHOSPHATASE 53 U/L (30-120); ALT (SGPT) 24 U/L (10-68); BILIRUBIN - TOTAL 1.08 mg/dL (0.2-1.3); CALCIUM 7.5 mg/dL (8.5-10.1); CARBON DIOXIDE 27.3 mmol/L (21.0-32.0); CHLORIDE - SERUM 105 mmol/L (98-107); CREATININE - SERUM 0.7 mg/dL (0.6-1.3); POTASSIUM - SERUM 4.1 mmol/L (3.5-5.1); PROTEIN - SERUM 5.2 g/dL (6.4-8.2); SODIUM 137 mmol/L (136-145); UREA NITROGEN 9 mg/dL (7-18); eGFR NON AFRICAN AMERICAN 86 mL/min (90-120)
[2019-10-17 06:36] LABS: CALC OSMOLALITY 275 mosm/kg (275-300); GLUCOSE 149 mg/dL (74-106)
[2019-10-17 08:40] LABS: BASOPHILS 0.1 % (0-2); EOSINOPHILS 0 % (0-7); HEMATOCRIT 26.9 % (36.0-48.0); HEMOGLOBIN 8.9 g/dL (12-16); IMMATURE GRANULOCYTES 0.3 % (0-5); LYMPHOCYTES 5.1 % (15-50); MCH 29.1 pg (26.0-34.0); MCHC 33.1 g/dL (31.0-37.0); MCV 87.9 fL (80.0-100.0); MEAN PLATELET VOLUME 10.7 fL (7.4-10.4); MONOCYTES 6.6 % (2-11); NEUTROPHILS 87.9 % (40-80); RBC 3.06 10x6/uL (4.00-5.40); RDW 14.4 % (11.5-14.5)
[2019-10-17 09:02] LABS: PLATELET COUNT 210 10x3/uL (130-400); WBC 13.3 10x3/uL (4.8-10.8)
[2019-10-17 09:27] LABS: ALBUMIN 2.6 g/dL (3.4-5.0); ALKALINE PHOSPHATASE 54 U/L (30-120); ALT (SGPT) 26 U/L (10-68); BILIRUBIN - TOTAL 1.14 mg/dL (0.2-1.3); CALC OSMOLALITY 274 mosm/kg (275-300); CALCIUM 7.7 mg/dL (8.5-10.1); CARBON DIOXIDE 23.5 mmol/L (21.0-32.0); CHLORIDE - SERUM 103 mmol/L (98-107); CREATININE - SERUM 0.6 mg/dL (0.6-1.3); GLUCOSE 169 mg/dL (74-106); POTASSIUM - SERUM 4.1 mmol/L (3.5-5.1); PROTEIN - SERUM 5.4 g/dL (6.4-8.2); SODIUM 136 mmol/L (136-145); UREA NITROGEN 10 mg/dL (7-18); eGFR NON AFRICAN AMERICAN > 90 mL/min (90-120)
--- NOTE | 2019-10-17 11:10 | NUR ---
ORAL CARE DONE WITH PERIDEX
--- NOTE | 2019-10-17 17:35 | NUR ---
PATIENT UP TO BATHROOM VOIDED APPROX 200ML YELLOW URINE BACK TO BED. PATIENT TOLERATED WELL.
[2019-10-17 19:10] LABS: POTASSIUM - SERUM 3.9 mmol/L (3.5-5.1)
--- NOTE | 2019-10-17 23:08 | NUR ---
PT AWAKE COMPLAINS OF INCISIONAL DISCOMFORT, PAIN PILL REQUESTED, PERCOCET 10 PROVIDED BY Betty TANG RN, PT ASSISTED TO POSITION FOR COMFORT, VSS, WILL MONITOR CLOSELY FOR CHANGES.
[2019-10-18] VITALS (23 sets, daily range): BP systolic 89–138; BP diastolic 53–77
--- NOTE | 2019-10-18 05:30 | NUR ---
PT ASSISTED UP TO BATHROOM TO VOID, PT ASSISTED TO RECLINER AND HAIR BRUSHED, DENIES NEEDS, LIGHT OFF PER REQUEST, BS TABLE AND CALL LIGHT REACH.
[2019-10-18 06:32] LABS: HEMATOCRIT 25.1 % (36.0-48.0); HEMOGLOBIN 8.2 g/dL (12-16); MCH 29.1 pg (26.0-34.0); MCHC 32.7 g/dL (31.0-37.0); MEAN PLATELET VOLUME 11.1 fL (7.4-10.4); RBC 2.82 10x6/uL (4.00-5.40); RDW 14.4 % (11.5-14.5); WBC 14.2 10x3/uL (4.8-10.8)
[2019-10-18 07:00] LABS: ALBUMIN 2.5 g/dL (3.4-5.0); ALKALINE PHOSPHATASE 60 U/L (30-120); ALT (SGPT) 21 U/L (10-68); BILIRUBIN - TOTAL 0.76 mg/dL (0.2-1.3); CALC OSMOLALITY 266 mosm/kg (275-300); CALCIUM 8.3 mg/dL (8.5-10.1); CARBON DIOXIDE 26.3 mmol/L (21.0-32.0); CHLORIDE - SERUM 99 mmol/L (98-107); CREATININE - SERUM 0.7 mg/dL (0.6-1.3); GLUCOSE 128 mg/dL (74-106); POTASSIUM - SERUM 4.3 mmol/L (3.5-5.1); PROTEIN - SERUM 5.6 g/dL (6.4-8.2); SODIUM 133 mmol/L (136-145); UREA NITROGEN 10 mg/dL (7-18); eGFR NON AFRICAN AMERICAN 86 mL/min (90-120)
--- NOTE | 2019-10-18 14:48 | NUR ---
IN AND OUT CATH DONE USING EFFICIENCY MINER BLASTING SENT TO LAB.
[2019-10-18 15:32] LABS: BILIRUBIN NEGATIVE (NEGATIVE); KETONE NEGATIVE (NEGATIVE); NITRITE NEGATIVE (NEGATIVE); UROBILINOGEN NORMAL (NORMAL)
--- NOTE | 2019-10-18 19:20 | NUR ---
PT RECEIVED IN BED WITH EYES OPEN. PT UP TO BATHROOM, URINE ONLY NOTED. BACK IN BED AND PLACED ON MONITOR. CALL LIGHT IN REACH. WILL CONTINUE TO OBSERVE.
--- NOTE | 2019-10-18 22:35 | NUR ---
PT ASSISTED TO BATHROOM. URINE ONLY NOTED. BACK IN BED. CALL LIGHT IN REACH.
[2019-10-19] VITALS (26 sets, daily range): BP systolic 93–126; BP diastolic 53–79
--- NOTE | 2019-10-19 02:15 | NUR ---
PT UP TO BATHROOM, URINE ONLY NOTED. BACK IN BED. CALL LIGHT IN REACH.
[2019-10-19 06:20] LABS: BASOPHILS 0.1 % (0-2); EOSINOPHILS 0.8 % (0-7); HEMATOCRIT 22.8 % (36.0-48.0); IMMATURE GRANULOCYTES 0.2 % (0-5); LYMPHOCYTES 8.6 % (15-50); MCH 28.7 pg (26.0-34.0); MCHC 32.5 g/dL (31.0-37.0); MCV 88.4 fL (80.0-100.0); MEAN PLATELET VOLUME 11.1 fL (7.4-10.4); MONOCYTES 6.8 % (2-11); NEUTROPHILS 83.5 % (40-80); PLATELET COUNT 162 10x3/uL (130-400); RBC 2.58 10x6/uL (4.00-5.40); RDW 14.1 % (11.5-14.5)
[2019-10-19 06:22] LABS: WBC 9.2 10x3/uL (4.8-10.8)
[2019-10-19 06:24] LABS: HEMOGLOBIN 7.4 g/dL (12-16)
[2019-10-19 06:30] LABS: ALBUMIN 2.3 g/dL (3.4-5.0); ALKALINE PHOSPHATASE 61 U/L (30-120); ALT (SGPT) 20 U/L (10-68); CALC OSMOLALITY 273 mosm/kg (275-300); CALCIUM 8.6 mg/dL (8.5-10.1); CARBON DIOXIDE 29.3 mmol/L (21.0-32.0); CHLORIDE - SERUM 102 mmol/L (98-107); CREATININE - SERUM 0.6 mg/dL (0.6-1.3); GLUCOSE 103 mg/dL (74-106); POTASSIUM - SERUM 3.8 mmol/L (3.5-5.1); PROTEIN - SERUM 5.4 g/dL (6.4-8.2); SODIUM 137 mmol/L (136-145); UREA NITROGEN 12 mg/dL (7-18); eGFR NON AFRICAN AMERICAN > 90 mL/min (90-120)
--- NOTE | 2019-10-19 06:52 | NUR ---
DR NAVARRO CALLED AND REPORTED CRITICAL HGB 7.4, ORDERS RECEIVED FOR 2 UNITS PRBC.
--- NOTE | 2019-10-19 08:30 | NUR ---
Nutrition Follow-up: POD 3 CABG. Eating well. -BM; +flatus Diet: Regular Wt: 134# (10/18) Labs noted: Alb 2.3 Meds noted: Senokot, Colace, Protonix -Encourage PO intake and honor food preferences within diet restrictions. -Monitor wt. -RD following.
--- NOTE | 2019-10-19 16:00 | NUR ---
Up in [place]bin ambulating. Walked [place].
--- NOTE | 2019-10-19 17:00 | NUR ---
back to bed. Cvl dcd. Iv started l ac with 20 guage needle.
[2019-10-20] VITALS (25 sets, daily range): BP systolic 90–133; BP diastolic 57–80
[2019-10-20 05:06] LABS: BASOPHILS 0.3 % (0-2); EOSINOPHILS 2.3 % (0-7); IMMATURE GRANULOCYTES 0.5 % (0-5); LYMPHOCYTES 14.2 % (15-50); MCH 29.2 pg (26.0-34.0); MCHC 33.3 g/dL (31.0-37.0); MCV 87.5 fL (80.0-100.0); MEAN PLATELET VOLUME 10.9 fL (7.4-10.4); MONOCYTES 8.3 % (2-11); NEUTROPHILS 74.4 % (40-80); RDW 14.9 % (11.5-14.5); WBC 7.4 10x3/uL (4.8-10.8)
[2019-10-20 05:07] LABS: HEMATOCRIT 33.6 % (36.0-48.0); HEMOGLOBIN 11.2 g/dL (12-16); PLATELET COUNT 236 10x3/uL (130-400); RBC 3.84 10x6/uL (4.00-5.40)
[2019-10-20 05:17] LABS: ALBUMIN 2.4 g/dL (3.4-5.0); ALKALINE PHOSPHATASE 65 U/L (30-120); ALT (SGPT) 18 U/L (10-68); BILIRUBIN - TOTAL 1.45 mg/dL (0.2-1.3); CALC OSMOLALITY 274 mosm/kg (275-300); CALCIUM 8.7 mg/dL (8.5-10.1); CARBON DIOXIDE 27.7 mmol/L (21.0-32.0); CHLORIDE - SERUM 102 mmol/L (98-107); CREATININE - SERUM 0.7 mg/dL (0.6-1.3); GLUCOSE 101 mg/dL (74-106); POTASSIUM - SERUM 3.7 mmol/L (3.5-5.1); SODIUM 138 mmol/L (136-145); UREA NITROGEN 9 mg/dL (7-18); eGFR NON AFRICAN AMERICAN 86 mL/min (90-120)
--- NOTE | 2019-10-20 08:34 | OP ---
PATIENT NAME: LINDA PRESTON MEDICAL RECORD: [id number] :41 LOCATION:D.CVI D.CV03 ADMISSION DATE:10/11/19 SURGEON: ROBE QUEVEDO MD DATE OF OPERATION: 10/16/2019 SURGEON: Robe Quevedo MD PROCEDURES PERFORMED: 1. Coronary artery bypass graft times 4 (left internal mammary artery to LAD, reverse saphenous vein graft from aorta to first obtuse marginal, from aorta to posterolateral branch of circumflex, and aorta to right coronary artery. 2. Endoscopic saphenous vein harvest. PREOPERATIVE DIAGNOSIS: Coronary artery disease and myocardial infarction. POSTOPERATIVE DIAGNOSES: Coronary artery disease and myocardial infarction. ANESTHESIA: General endotracheal anesthesia. ESTIMATED BLOOD LOSS: Total cardiopulmonary bypass with Cell Saver retransfusion, one pack red blood cells, one platelet. COMPLICATIONS: None. SPECIMENS: None. CONDITION: Stable. DISPOSITION: CV ICU. OPERATIVE FINDINGS: 1. Transesophageal echocardiography revealed normal contractility, ejection fraction 55%. 2. Small but good quality left internal mammary artery. The LAD was deep intraepicardial 5-6 mm and had severe disease throughout, but a 1.5 mm probe passed distally through the plaque to the apex, anastomosis between the worst plaques. Good Doppler signal after anastomosis and after reversal of heparin. 3. First obtuse marginal 1.5 mm down to the bifurcation with severe disease. 4. Posterolateral circumflex 2.5 mm. 5. Right coronary artery just past a large acute marginal 2.0 mm with severe disease. OPERATIVE INDICATION: Myocardial infarction and multivessel coronary artery disease. DESCRIPTION OF PROCEDURE: The patient was brought to the operating suite. General anesthesia was obtained, the patient was prepped and draped. Greater saphenous vein harvested endoscopically right lower extremity. Side branches were divided with electrocautery. The vessel was ligated proximally and distally removed. Side branches were tied. Bridging incisions were used on the right thigh for removal of the good vein. There was slightly larger caliber than the right leg. Side branches here were clipped. Vessel ligated proximally and distally and removed. Later both leg incisions were irrigated and closed. Median sternotomy incision was made. Subcutaneous tissue divided. The sternum OPERATIVE REPORT [id number] LINDA PRESTON was divided with a saw. The left hemisternum was elevated. Left pleural cavity was entered. Left internal mammary artery and vein was taken down as a pedicle graft. A sternal retractor was placed. Pericardium was opened. Heparin was given. Aorta was cannulated. Dual stage venous cannula was inserted. Activated clotting time was appropriately elevated. The internal mammary was clipped distally and made ready for anastomosis. The patient was placed on cardiopulmonary bypass. Sites for distal anastomoses were selected. The patient's temperature drifted downwardly. Antegrade cardioplegic cannula was inserted. The patient was crossclamped. Cardioplegia was given antegrade and this was repeated at 15 to 20 minute intervals including down the completed vein grafts. Distal anastomosis was performed in standard technique. Proximal anastomosis with single cross-clamp technique. Aortic root de-aired. Proximal anastomoses tied down. Vein grafts de-aired and flow restored, single 6.0 proximal single 7.0 distal right graft. The patient resumed a spontaneous rhythm, fully rewarmed, weaned from cardiopulmonary bypass and stable. The patient was decannulated. The cannula sites were oversewn. Protamine was given. Thorough irrigation was undertaken gradually appropriately. Hemostasis was assured. Ventricular pacing wire was placed. Drains were placed in the mediastinum and left pleural cavity. Left chest was evacuated and irrigated. The internal mammary harvest site inspected for bleeding. Sternum was closed with wires. Fascia was closed. Subcutaneous tissue was closed. Skin was closed. Dermabond was placed. The needle and sponge counts were correct. The patient was taken to ICU in stable condition. TRANSINT:[id number] Voice Confirmation ID: [id number] DOCUMENT ID: [id number] ROBE QUEVEDO MD at 0834 CC: AL PRADO DO and ANJUM DORADO MD [id number] DICTATION DATE: 10/16/19 1353 TEA TREE FARM WORKER: 10/16/19 8383 ADM IN [facility] [address] [place] [address]
--- NOTE | 2019-10-20 08:38 | NUR ---
PATIENT BACK TO BED. DR. QUEVEDO AT BEDSIDE PATRICIA DRAIN AND TPM WIRE PULLED. BETADINE AND CLEAN DRESSING APPLIED. PATIENT TOLERATED WELL. CALL LIGHT WITHIN REACH, BED IN LOW POSITION, AND WILL CONTINUE TO MONITOR.
--- NOTE | 2019-10-20 14:00 | NUR ---
Assumed care of patient at this time. Resting comfortably in bed. Eyes closed. Will continue to monitor.
--- NOTE | 2019-10-20 14:35 | NUR ---
Blood pressure reviewed with Dr. Jacob. Ordered 20mg Lasix IV.
--- NOTE | 2019-10-20 18:00 | NUR ---
Ambulated in unit with nurse. Tolerated well. Continues on room air. Hr slightly tachycardic 102. Pain medicine given before ambulation. No further needs at this time.
[2019-10-21] VITALS (15 sets, daily range): BP systolic 102–138; BP diastolic 62–84
[2019-10-21 05:04] LABS: BASOPHILS 0.3 % (0-2); EOSINOPHILS 3.2 % (0-7); HEMATOCRIT 33.5 % (36.0-48.0); HEMOGLOBIN 10.9 g/dL (12-16); IMMATURE GRANULOCYTES 1.4 % (0-5); LYMPHOCYTES 13.7 % (15-50); MCH 28.9 pg (26.0-34.0); MCHC 32.5 g/dL (31.0-37.0); MCV 88.9 fL (80.0-100.0); MONOCYTES 10.8 % (2-11); NEUTROPHILS 70.6 % (40-80); PLATELET COUNT 249 10x3/uL (130-400); RBC 3.77 10x6/uL (4.00-5.40); RDW 14.9 % (11.5-14.5); WBC 6.7 10x3/uL (4.8-10.8)
[2019-10-21 05:20] LABS: ALBUMIN 2.3 g/dL (3.4-5.0); ALKALINE PHOSPHATASE 69 U/L (30-120); ALT (SGPT) 16 U/L (10-68); BILIRUBIN - TOTAL 0.99 mg/dL (0.2-1.3); CALC OSMOLALITY 276 mosm/kg (275-300); CALCIUM 8.7 mg/dL (8.5-10.1); CARBON DIOXIDE 28.7 mmol/L (21.0-32.0); CHLORIDE - SERUM 104 mmol/L (98-107); CREATININE - SERUM 0.7 mg/dL (0.6-1.3); GLUCOSE 101 mg/dL (74-106); POTASSIUM - SERUM 3.5 mmol/L (3.5-5.1); PROTEIN - SERUM 5.8 g/dL (6.4-8.2); SODIUM 139 mmol/L (136-145); UREA NITROGEN 9 mg/dL (7-18); eGFR NON AFRICAN AMERICAN 86 mL/min (90-120)
--- NOTE | 2019-10-21 09:11 | TEE ---
PATIENT:LINDA PRESTON MEDICAL RECORD: [id number] LOCATION:[place] [address] AGE OF PATIENT: 74 ADMISSION DATE: 10/11/19 SEX: F REFERRING PHYSICIAN: INTERPRETING PHYSICIAN: ANJUM DORADO MD TRANSESOPHAGEAL ECHOCARDIOGRAM Date: 10/16/19 VLADIMIR CHARGE Y INDICATIONS: CABG PREMEDICATIONS: PATIENT'S RESPONSE PROCEDURE DOPPLER MEASUREMENTS: LVIT LA PA 61 RA LVOT 95 RVOT 41 Asc. Ao 108 AV Gradient Peak 4.6 AV Mean 2.2 AV Area 2.2 MV Gradient Peak 4.1 MV Mean 1.4 MV Area INTERPRETATION: Doppler: 2-D: COLOR FLOW DOPPLER NORMAL SALINE STUDY: MISCELLANOUS: DIAGNOSIS: PLAN: Buckle Attacher:3 Dr. Miller Supervisor [employer]: Jesica MARROQUIN COMMENTS: DATE OF SERVICE: 10/20/2019 Preop, normal wall motion, normal wall thickening in all segments. EF greater than 55%. Aortic valve is tricuspid with good valve excursion. Mitral valve appears normal. Trivial MR. Postoperatively, normal wall motion, normal wall thickening in all segments. EF 55%. Aortic valve is tricuspid with good valve excursion. Mitral valve appears normal. Trivial MR. TRANSINT:[id number] Voice Confirmation ID: [id number] DOCUMENT ID: [id number] TRANSESOPHAGEAL ECHOCARDIOGRAM REPORT [id number] MOHANGERMAN at 0911 CC: [id number] DICTATION DATE: 10/20/19 1203 SANITATION LABORER: 10/20/19 1520 ADM IN [place] [address] [place] [address]
--- NOTE | 2019-10-21 09:15 | NUR ---
Ambulated about 500ft with physical therapy. Tolerated well.
--- NOTE | 2019-10-21 09:36 | NUR ---
Nutrition Follow-up: POD 5 CABG. Pt reports good appetite/PO intake. Diet: Regular Wt: 132.8# (10/20) Last BM: 10/18 Labs noted: Alb 2.3 Meds noted: Senokot, Colace, KDur, Protonix, electrolyte protocol -Encourage PO intake and honor food preferences. -Monitor wt. -RD following.
[2019-10-21] MEDS ORDERED: LOW DOSE ASPIRI81 M1 PO (12:56)
[2019-10-21] MEDS ORDERED: COLACE100 MG PO (12:58)
[2019-10-21] MEDS ORDERED: PERCOCET 5-3251 TAB PO (15:17)
--- NOTE | 2019-10-21 15:39 | NUR ---
Follow up appointment with Dr. Lawton's office schedule for Oct 30 2019 at 1130. Follow up appointment with Cardiology on Nov 10 at 1130.
--- NOTE | 2019-10-21 17:45 | NUR ---
L-AC piv dc'd per or protocol. Discharge instructions reviewed with patient. Personal belongings sent with patient. wheeled out to personal vehicle.
--- NOTE | 2019-10-22 09:26 | MORECARE ---
CASE MANAGEMENT DISCHARGE SUMMARY PATIENT: LINDA GARCIA UNIT: [id number] ADM DATE: 10/11/19 AGE: 74 : 43 SEX: F ROOM/BED: D.CV03 AUTHOR: JENNIFFER MOORE PHYSICIAN: REFERRING PHYSICIAN: AL PRADO DO DATE OF SERVICE: 10/22/19 Discharge Plan Patient Name: LINDA GARCIA Facility: [facility]:[place] : 1945 Planned Disposition: Home or Self Care Anticipated Discharge Date: Discharge Date: 10/21/2019 Expected LOS: Initial Reviewer: [email or web address] Initial Review Date: 10/15/2019 Generated: 10/22/19 10:26 am DCP- Discharge Planning Updated by [email or web address]: Deacon Gabriel on 10/15/19 1:[address] Patient Name: LINDA GARCIA Admission Status: ER Accout number: [id number] Admission Date: 10-11-2019 : 1945 Admission Diagnosis:NON-ST ELEVATION (NSTEMI) MYOCARDIAL INFARCTION Attending: AL PRADO Current LOS: 4 Anticipated DC Date: Planned Disposition: Home or Self Care Primary Insurance: AETNA MEDICARE PPO or HMO Discharge Planning Comments: CM met with patient to complete initial dc planning assessment. CM educated patient on the CM role and verbal consent was given by patient to complete assessment. CM verified patient's address, phone number, and emergency contact phone numbers. Patient lives at home with her spouse. At discharge, patient plans to return home and feels this is a safe discharge environment. Patient explained that she has 3 steps total to enter her house and they are at different levels, however, ramps have been installed and she feels that her home is safe to enter. She further stated that she exits her house via the front door and the one step inside her home has handrails that eases navigation from one level to the other. Patient stated that she has daughters that live nearby on the same property and several grandchildren that will come to help with house chores. CM discussed availability of home health, rehab services, and medical equipment. Patient explained that her spouse has left over medical equipment from a previous surgery and she does not anticipate needing any equipment. Patient denied known discharge needs at this time. Transportation provider at discharge will be her spouse, Robin Garcia ([phone]). Patient explained that if outpatient rehabilitation services are needed post discharge, then she would like facilities near [place] to provide her care. CM will continue to follow and will assist as needed with dc plans/needs. Undercoater: Deacon Gabriel DCPIA - Discharge Planning Initial Assessment Updated by [email or web address]: Deacon Gabriel on 10/15/19 2:09 pm * Is the patient Alert and Oriented? Yes * How many steps to enter\exit or inside your home? * PCP Lyndon Lawton * Pharmacy [facility] in [place] * Preadmission Environment Home with Family * ADLs Independent * Equipment Cane Crutch Elevated [place] Seat Walker * List name and contact numbers for known caregivers / representatives who currently or will assist patient after discharge: Robin Garcia ([phone]) * Verbal permission to speak to the caregivers and representatives has been obtained from the patient. Yes * Community resources currently utilized None * Additional services required to return to the preadmission environment? No * Can the patient safely return to the preadmission environment? Yes * Has this patient been hospitalized within the prior 30 days at any hospital? No Last DP export: 10/15/19 1:35 pm Patient Name: LINDA GARCIA Page 16664 at 0926 All edits/amendments must be made on the electronic document DICTATION DATE: 10/22/19925 AUTOMOBILE SERVICE STATION ATTENDANT: LAVERN 10/22/19925 RPT#: [id number] DC DATE:10/21/19 STATUS: DIS IN [facility] [address] [place] [address] END OF REPORT
== END 2019-10-21 17:55 | disposition home or self-care (01) | DRG 233 ==
LOC: D.ER 12:54 → D.EDHOLD 15:42 → D.M2 15:42 → D.CVICU 15:42 → D.M2 15:46 → D.CVICU 10-16 10:40
PROVIDERS: Family Medicine; Internal Medicine Cardiovascular Disease; Thoracic Surgery (Cardiothoracic Vascular Surgery); ADMIT Family Medicine; ATTEND Family Medicine
PROC: B2111ZZ Fluoroscopy of Multiple Coronary Arteries using Low Osmolar Contrast (ICD-10-PCS; 2019-10-12)
PROC: B2151ZZ Fluoroscopy of Left Heart using Low Osmolar Contrast (ICD-10-PCS; 2019-10-12)
PROC: 4A023N7 Measurement of Cardiac Sampling and Pressure, Left Heart, Percutaneous Approach (ICD-10-PCS; 2019-10-12)
PROC: 021209W Bypass Coronary Artery, Three Arteries from Aorta with Autologous Venous Tissue, Open Approach (ICD-10-PCS; 2019-10-16)
PROC: 06BP4ZZ Excision of Right Saphenous Vein, Percutaneous Endoscopic Approach (ICD-10-PCS; 2019-10-16)
PROC: 5A1221Z Performance of Cardiac Output, Continuous (ICD-10-PCS; 2019-10-16)
PROC: B245ZZ4 Ultrasonography of Left Heart, Transesophageal (ICD-10-PCS; 2019-10-16)
PROC: 02100Z9 Bypass Coronary Artery, One Artery from Left Internal Mammary, Open Approach (ICD-10-PCS; principal; 2019-10-16 07:30)
DX: I21.4 Non-ST elevation (NSTEMI) myocardial infarction (principal); I50.23 Acute on chronic systolic (congestive) heart failure; E78.5 Hyperlipidemia, unspecified; E55.9 Vitamin D deficiency, unspecified; M81.0 Age-related osteoporosis without current pathological fracture; I25.10 Atherosclerotic heart disease of native coronary artery without angina pectoris

== ENCOUNTER → 2019-11-11 08:58 | Outpatient (CLI) | payer MEDICARE ==
[2019-10-12 15:41] VITALS: BMI 23.4
[~2019-11-11 08:58] MED LIST: COLACE100 MG PO; LOW DOSE ASPIRI81 M1 PO; PERCOCET 5-3251 TAB PO
[2019-11-11 10:12] LABS: BASOPHILS 0.4 % (0-2); EOSINOPHILS 2.7 % (0-7); HEMATOCRIT 37.1 % (36.0-48.0); HEMOGLOBIN 11.7 g/dL (12-16); IMMATURE GRANULOCYTES 0.2 % (0-5); LYMPHOCYTES 25.2 % (15-50); MCH 28.3 pg (26.0-34.0); MCHC 31.5 g/dL (31.0-37.0); MCV 89.8 fL (80.0-100.0); MEAN PLATELET VOLUME 10.7 fL (7.4-10.4); MONOCYTES 7.2 % (2-11); NEUTROPHILS 64.3 % (40-80); PLATELET COUNT 227 10x3/uL (130-400); RBC 4.13 10x6/uL (4.00-5.40); RDW 13.7 % (11.5-14.5); WBC 4.8 10x3/uL (4.8-10.8)
[2019-11-11 10:21] LABS: CALC OSMOLALITY 275 mosm/kg (275-300); CALCIUM 9.4 mg/dL (8.5-10.1); CARBON DIOXIDE 28.3 mmol/L (21.0-32.0); CHLORIDE - SERUM 105 mmol/L (98-107); CREATININE - SERUM 0.7 mg/dL (0.6-1.3); GLUCOSE 109 mg/dL (74-106); POTASSIUM - SERUM 4.4 mmol/L (3.5-5.1); SODIUM 138 mmol/L (136-145); UREA NITROGEN 10 mg/dL (7-18); eGFR NON AFRICAN AMERICAN 86 mL/min (90-120)
== END | disposition home or self-care (01) ==
LOC: D.LAB 08:58
PROVIDERS: ATTEND Thoracic Surgery (Cardiothoracic Vascular Surgery)
DX: Z95.1 Presence of aortocoronary bypass graft (principal)

== ENCOUNTER → 2020-05-11 08:46 | Outpatient (CLI) | payer MEDICARE ==
[2019-10-12 15:41] VITALS: BMI 23.4
== END | disposition home or self-care (01) ==
LOC: D.NM 08:46
PROVIDERS: ATTEND Family Medicine
DX: R10.11 Right upper quadrant pain (principal)

== ENCOUNTER 2020-06-09 05:30 | Day surgery (SDC) | payer MEDICARE ==
[2020-06-08 10:30] LABS: CALC OSMOLALITY 263 mosm/kg (275-300); CARBON DIOXIDE 25.7 mmol/L (21.0-32.0); CHLORIDE - SERUM 100 mmol/L (98-107); CREATININE - SERUM 0.7 mg/dL (0.6-1.3); GLUCOSE 96 mg/dL (74-106); POTASSIUM - SERUM 3.9 mmol/L (3.5-5.1); SODIUM 132 mmol/L (136-145); UREA NITROGEN 10 mg/dL (7-18); eGFR NON AFRICAN AMERICAN 86 mL/min (90-120)
[2020-06-08 10:39] LABS: BASOPHILS 0.2 % (0-2); HEMATOCRIT 37.6 % (36.0-48.0); HEMOGLOBIN 12.4 g/dL (12-16); LYMPHOCYTE ABS# 0.76 10x3/uL (1.18-3.74); LYMPHOCYTES 15.1 % (15-50); MCH 28.8 pg (26.0-34.0); MCV 87.2 fL (80.0-100.0); MEAN PLATELET VOLUME 11.9 fL (7.4-10.4); MONOCYTES 9.1 % (2-11); NEUTROPHIL ABS# 3.76 10x3/uL (1.56-6.13); NEUTROPHILS 74.6 % (40-80); RBC 4.31 10x6/uL (4.00-5.40); RDW 13.5 % (11.5-14.5)
[2020-06-08 10:44] LABS: PLATELET COUNT 158 10x3/uL (130-400)
[~2020-06-09] VITALS: Ht 152.4 cm; Wt 55.3 kg
--- NOTE | ~2020-06-09 | OP ---
PATIENT NAME: LINDA PRESTON MEDICAL RECORD: [id number] :41 LOCATION:D.OPS ADMISSION DATE: SURGEON: KP THIBODEAUX MD DATE OF OPERATION: 06/09/2020 PREOPERATIVE DIAGNOSES: 1. Biliary dyskinesia. 2. Hyperlipidemia. 3. Gastroesophageal reflux disease. 4. Coronary artery disease. POSTOPERATIVE DIAGNOSES: 1. Biliary dyskinesia. 2. Hyperlipidemia. 3. Gastroesophageal reflux disease. 4. Coronary artery disease. PROCEDURE: Laparoscopic cholecystectomy. SURGEON: Kp Thibodeaux MD DESCRIPTION OF PROCEDURE: The patient's abdomen was prepped and draped in sterile fashion. A cutdown was made on the superior aspect of the umbilicus, 0 Vicryl were placed in the fascia bilaterally and the fascia was incised with a 15-blade. I then bluntly entered the peritoneal cavity and placed a 12-mm Eduard port. Under direct visualization, a 5-mm trocar was placed in the epigastrium and 2 more 5-mm trocars were placed in the right subcostal region. The gallbladder was grasped and elevated. There are no signs of any inflammatory changes. The cystic artery and cystic duct were dissected free and these were clipped proximally and distally and ligated in standard fashion. As we were taking the gallbladder off the liver bed, we encountered another arterial structure extending into the gallbladder. This was clipped proximally and distally and ligated. The gallbladder was then taken off the liver bed using electrocautery and placed into the right upper quadrant. Any bleeding from the liver bed was then treated with electrocautery. At this point, the ports and insufflation were then removed and the gallbladder was taken out through the umbilicus. The umbilical fascia was closed with interrupted 0 Vicryls times 3. The wounds were then irrigated out with normal saline and infused with 10 mL of 0.25% Marcaine with epinephrine. The skin incisions were all closed with subcutaneous 5-0 Monocryl and dressed appropriately. COMPLICATIONS: None. CONDITION: Stable. ANESTHESIA: General endotracheal and local. BLOOD LOSS: 30 mL. TRANSINT:[id number] Voice Confirmation ID: [id number] DOCUMENT ID: [id number] OPERATIVE REPORT [id number] LINDA PRESTON KP THIBODEAUX MD CC: AL PRADO DO and FRANSISCA NIÑO [id number] DICTATION DATE: 06/09/20 0859 DIRECTOR OF STRATEGY & MOBILE: 06/09/20 0925 [facility] [address] [place] [id number]
[~2020-06-09 05:30] MED LIST changes: +NITROQUICK0.4 MG SL; +OMEPRAZOLE CAP 20M PO; +PRAVASTATIN SOD10 MG PO
[2020-06-09 06:15] VITALS: BP 128/71; Ht 152.4 cm; Wt 55.3 kg
[2020-06-09] MEDS ORDERED: HYDROCODONE-AC1 EAC2 PO (08:56)
--- NOTE | 2020-06-09 11:31 | NUR ---
DISCHARGED VIA W/C, ACCOMPANIED BY THIS NURSE, TO POV WITH FAMILY DRIVING. ALL BELONGINGS WITH PT/FAMILY.
== END 2020-06-09 11:31 | disposition home or self-care (01) ==
LOC: D.OPS 05:30
PROVIDERS: Anesthesiology; ATTEND Surgery
DX: K82.8 Other specified diseases of gallbladder (principal); E78.5 Hyperlipidemia, unspecified; K21.9 Gastro-esophageal reflux disease without esophagitis; I25.10 Atherosclerotic heart disease of native coronary artery without angina pectoris